=== PATIENT | female | born 1995 | race Caucasian/White ===

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

== ENCOUNTER 2017-04-20 08:20 | Emergency (ER) | payer OTHER ==
[2017-04-20 08:34] VITALS: BP 130/80
--- NOTE | 2017-04-20 09:03 | UC ---
Eye Complaint HPI - HPI Summary HPI Summary: 22 yo WF c/o B/L crusty yellow d/c worsening since yesterday and worsening sinus infection about 10 days after her URI sx - History of Current Complaint Chief Complaint: UCGeneralIllness Stated Complaint: EYE ISSUE SINUS ISSUE Time Seen by Provider: 04/20/17 08:48 Hx Obtained From: Patient Hx Last Menstrual Period: 03/25/17 Onset/Duration: Lasting Days, Still Present Timing: Constant Pain Intensity: 4 - Allergies/Home Medications Allergies/Adverse Reactions: Allergies Allergy/AdvReac Type Severity Reaction Status Date / Time No Known Allergies Allergy Verified 04/20/17 08:29 PMH/Surg Hx/FS Hx/Imm Hx - Additional Past Medical History Additional PMH: none Previously Healthy: Yes - Surgical History Surgical History: None - Family History Known Family History: Positive: Hypertension - Social History Alcohol Use: Occasionally Substance Use Type: None Smoking Status (MU): Never Smoked Tobacco Review of Systems Constitutional: Negative Skin: Negative Eyes: Drainage, Eye Redness ENT: Nasal Discharge, Sinus Pain/Tenderness Respiratory: Negative Cardiovascular: Negative Gastrointestinal: Negative Genitourinary: Negative Motor: Negative Neurovascular: Negative Musculoskeletal: Negative Neurological: Negative Psychological: Negative All Other Systems Reviewed And Are Negative: Yes Physical Exam Triage Information Reviewed: Yes Vital Signs: Initial Vital Signs Temp 37.2 C 04/20/17 08:30 Pulse 81 04/20/17 08:30 Resp 16 04/20/17 08:30 BP 130/80 04/20/17 08:30 Pulse Ox 99 04/20/17 08:30 Eyes: Positive: Other: - B/L conjunctivial injection with yellow d/c ENT Exam: Normal ENT: Positive: Sinus tenderness Dental Exam: Normal Neck exam: Normal Neck: Positive: 1 Respiratory Exam: Normal Cardiovascular Exam: Normal Abdominal Exam: Normal Musculoskeletal Exam: Normal Neurological Exam: Normal Psychological Exam: Normal Skin Exam: Normal Eye Complaint Course/Dx - Differential Dx/Diagnosis Provider Diagnoses: B/L conjucntivitis. Bacterial sinus infection Discharge - Discharge Plan Condition: Stable Disposition: HOME Prescriptions: Amoxicillin/Clavulanate TAB* [Augmentin TAB 500 mg*] 500 mg PO BID 7 Days #14 tab Ciprofloxacin 0.3% OPTH.ROSA* [Cipro 0.3% Opth*] 2 drop BOTH EYES Q4H 7 Days #1 btl Patient Education Materials: Conjunctivitis (ED), Rhinosinusitis (ED) Referrals: [facility] - H[facility]ctor CHARLES [Primary Care Provider] - Additional Instructions: take medications as directed
== END 2017-04-20 09:00 | disposition home or self-care (01) ==
LOC: UCEAST 08:20
DX: H10.9 Unspecified conjunctivitis (principal); J32.9 Chronic sinusitis, unspecified; B96.89 Other specified bacterial agents as the cause of diseases classified elsewhere
CPT/HCPCS: 99212; G0463

== ENCOUNTER 2017-06-04 19:25 | Emergency (ER) | payer OTHER ==
--- NOTE | 2017-06-04 19:38 | UC ---
Skin Complaint HPI - HPI Summary HPI Summary: Pt presents for mildly itchy rash on her upper back that she first noticed earlier today. 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 Denies fever or chills. - History of Current Complaint Time Seen by Provider: 06/04/17 19:38 Stated Complaint: RASH ON BACK Hx Obtained From: Patient Hx Last Menstrual Period: 03/25/17 Onset/Duration: Sudden Onset Timing: Constant - Allergy/Home Medications Allergies/Adverse Reactions: Allergies Allergy/AdvReac Type Severity Reaction Status Date / Time No Known Allergies Allergy Verified 06/04/17 19:53 Review of Systems Constitutional: Negative Skin: Rash - Back Respiratory: Negative Cardiovascular: Negative Neurovascular: Negative Neurological: Negative Psychological: Negative All Other Systems Reviewed And Are Negative: Yes PMH/Surg Hx/FS Hx/Imm Hx - Additional Past Medical History Additional PMH: None Previously Healthy: Yes - Surgical History Surgical History: None - Family History Known Family History: Positive: Hypertension - Social History Occupation: Student Lives: Dormitory/Roommates Alcohol Use: Occasionally Substance Use Type: None Smoking Status (MU): Never Smoked Tobacco Physical Exam - Summary Physical Exam Summary: GENERAL: NAD. WDWN. No pain distress. SKIN: On left upper back there is a 5.0cm diameter area of mild hyperpigmentation and mild boarding erythema. NECK: Supple. Nontender. No lymphadenopathy. CHEST: CTAB. No r/r/w. No accessory muscle use. Breathing comfortably and in no distress. CV: RRR. Without m/r/g. Pulses intact. Brisk cap refill. NEURO: Alert. CN II-XII grossly intact. PSYCH: Age appropriate behavior. Triage Information Reviewed: Yes Course/Dx - Course Course Of Treatment: Suspect tinea infection. Rx for ketoconazole - Diagnoses Provider Diagnoses: Tinea infection back Discharge - Sign-Out/Discharge Documenting (check all that apply): Discharge/Admit/Transfer - Discharge Plan Condition: Stable Disposition: HOME Prescriptions: Hydrocortisone 1% CREAM* [Hytone Cream 1%*] 1 applic TOPICAL BID #1 tube Ketoconazole 2 % CREAM (NF) [Nizoral 2% CREAM (NF)] 1 applic TOPICAL BID #1 tube Patient Education Materials: Tinea Versicolor (ED) Additional Instructions: If you develop a fever, shortness of breath, chest pain, new or worsening symptoms - please call your PCP or go to the ED. - Billing Disposition and Condition Condition: STABLE Disposition: HOME
[2017-06-04 19:53] VITALS: BP 136/72
== END 2017-06-04 20:03 | disposition home or self-care (01) ==
LOC: UCEAST 19:25
DX: B35.4 Tinea corporis (principal)
CPT/HCPCS: 99211; G0463

== ENCOUNTER 2017-11-15 14:03 | Emergency (ER) | payer OTHER ==
[2017-11-15 14:20] VITALS: BP 132/87
--- NOTE | 2017-11-15 15:45 | UC ---
Complaint Female HPI - HPI Summary HPI Summary: 22 yo female presents requesting STD testing. She tells me that she has been sexually active with a new partner and has found out that he has been "not the cleanest person". She does not believe he has any specific STD, but is requesting a screening. Denies fever, chills, abdominal pain, pelvic pain, dysuria, or vaginal discharge. - History Of Current Complaint Chief Complaint: UCSTDScreening Stated Complaint: STD TESTING Time Seen by Provider: 11/15/17 14:46 Hx Obtained From: Patient Hx Last Menstrual Period: 10/29/17 Severity Currently: None Pain Intensity: 0 - Allergies/Home Medications Allergies/Adverse Reactions: Allergies Allergy/AdvReac Type Severity Reaction Status Date / Time No Known Allergies Allergy Verified 06/04/17 19:53 Home Medications: Home Medications Tri-Estarylla (Nf) [Tri-Estarylla] 1 tab PO DAILY 11/15/17 [History Confirmed ] PMH/Surg Hx/FS Hx/Imm Hx - Additional Past Medical History Additional PMH: None - Surgical History Surgical History: None - Family History Known Family History: Positive: Hypertension - Social History Occupation: Student Lives: Dormitory/Roommates Alcohol Use: Occasionally Substance Use Type: None Smoking Status (MU): Never Smoked Tobacco Review of Systems Constitutional: Negative Skin: Negative Respiratory: Negative Cardiovascular: Negative Gastrointestinal: Negative Genitourinary: Negative Motor: Negative Neurological: Negative Psychological: Negative All Other Systems Reviewed And Are Negative: Yes Physical Exam - Summary Physical Exam Summary: GENERAL: NAD. WDWN. No pain distress. SKIN: No rashes, sores, lesions, or open wounds. NECK: Supple. Nontender. No lymphadenopathy. CHEST: CTAB. No r/r/w. No accessory muscle use. Breathing comfortably and in no distress. CV: RRR. Without m/r/g. Pulses intact. Cap refill <2seconds ABDOMEN: Soft. NTTP. No distention or guarding. No CVA tenderness. Bowel sounds present NEURO: Alert. PSYCH: Age appropriate behavior. Triage Information Reviewed: Yes Vital Signs: Initial Vital Signs Temp 98 F 11/15/17 14:17 Pulse 78 11/15/17 14:17 Resp 15 11/15/17 14:17 BP 132/87 11/15/17 14:17 Pulse Ox 100 11/15/17 14:17 Vital Signs Reviewed: Yes Pelvic Exam: Positive: External Exam Normal, No Cerv. Motion Tender, No Masses, Discharge - Mild thick white/yellow, Other - Assisted by Jesica EMANUEL. Negative: Active Bleeding, Lesions, Mass, Ulcers Complaint Female Dx - Course Course Of Treatment: Cultures obtained for Affirm and GC/C. Will call her with results. She declined blood testing today. - Differential Dx/Diagnosis Provider Diagnoses: STD testing Discharge - Sign-Out/Discharge Documenting (check all that apply): Patient Departure All imaging exams completed and their final reports reviewed: No Studies - Discharge Plan Condition: Stable Disposition: HOME Patient Education Materials: Chlamydia (ED), Sexually Transmitted Diseases (ED) Referrals: Bia Finch MD [Primary Care Provider] - Additional Instructions: If you develop a fever, shortness of breath, chest pain, new or worsening symptoms - please call your PCP or go to the ED. If you have not heard from us by Monday - please call and ask about your results - Billing Disposition and Condition Condition: STABLE Disposition: Home
--- NOTE | 2017-11-16 20:02 | UC ---
- Progress Note Progress Note: Neg GC, ch neg garnerela neg malik Please call pt with result ljj 11/16/17\ Discharge - Sign-Out/Discharge Documenting (check all that apply): Post-Discharge Follow Up All imaging exams completed and their final reports reviewed: No Studies - Discharge Plan Condition: Stable Disposition: HOME Patient Education Materials: Chlamydia (ED), Sexually Transmitted Diseases (ED) Referrals: Bia Finch MD [Primary Care Provider] - Additional Instructions: If you develop a fever, shortness of breath, chest pain, new or worsening symptoms - please call your PCP or go to the ED. If you have not heard from us by Monday - please call and ask about your results - Billing Disposition and Condition Condition: STABLE Disposition: Home
== END 2017-11-15 15:55 | disposition home or self-care (01) ==
LOC: UCEAST 14:03
DX: Z11.3 Encounter for screening for infections with a predominantly sexual mode of transmission (principal)
CPT/HCPCS: 84702; 87480; 87491; 87510; 87591; 87661; 99212; G0463

== ENCOUNTER 2018-04-16 16:04 | Emergency (ER) | payer OTHER ==
--- NOTE | 2018-04-16 16:24 | UC ---
Respiratory Complaint HPI - HPI Summary HPI Summary: 23 yo female presents with flu like symptoms. She tells me that her roommate at [employer] was sick with the flu last week. 2 days ago pt developed fatigue, body aches, loose stool, dry cough, and fever of 100.4F yesterday. Today she feels better as she has been taking theraflu. She denies sinus symptoms, sore throat, SOB, chest pain, abdominal pain. - History of Current Complaint Stated Complaint: COUGH, ACHES, DIARRHEA, AND FEVER Time Seen by Provider: 04/16/18 16:24 Hx Obtained From: Patient Hx Last Menstrual Period: 10/29/17 Onset/Duration: Sudden Onset Timing: Constant Severity Initially: Moderate Severity Currently: Mild Pain Intensity: 3 Pain Scale Used: 0-10 Numeric Character: Cough: Nonproductive - Allergies/Home Medications Allergies/Adverse Reactions: Allergies Allergy/AdvReac Type Severity Reaction Status Date / Time No Known Allergies Allergy Verified 06/04/17 19:53 Home Medications: Home Medications Pheniramine/P-Eph/Acetaminophn [Theraflu Flu & Sore Throat] 04/16/18 [History] PMH/Surg Hx/FS Hx/Imm Hx - Additional Past Medical History Additional PMH: None - Surgical History Surgical History: None - Family History Known Family History: Positive: Hypertension - Social History Occupation: Student Lives: Dormitory/Roommates Alcohol Use: Occasionally Substance Use Type: None Smoking Status (MU): Never Smoked Tobacco Review of Systems All Other Systems Reviewed And Are Negative: Yes Constitutional: Positive: Fever, Fatigue, Other - Body aches Skin: Positive: Negative Eyes: Positive: Negative ENT: Positive: Negative Respiratory: Positive: Cough Cardiovascular: Positive: Negative Gastrointestinal: Positive: Nausea Genitourinary: Positive: Negative Neurovascular: Positive: Negative Neurological: Positive: Negative Psychological: Positive: Negative Physical Exam - Summary Physical Exam Summary: GENERAL: NAD. WDWN. No pain distress. SKIN: No rashes, sores, lesions, or open wounds. HEENT: Head: AT/NC Eyes: EOM intact. Conjunctiva clear without inflammation or discharge. Ears: Hearing grossly normal. TMs intact, no bulging, erythema, or edema. Nose: Nasal mucosa pink and moist. NTTP maxillary and frontal sinus. Throat: Posterior oropharynx without exudates, erythema, or tonsillar enlargement. Uvula midline. NECK: Supple. Nontender. No lymphadenopathy. CHEST: CTAB. No r/r/w. No accessory muscle use. Breathing comfortably and in no distress. CV: RRR. Without m/r/g. Pulses intact. Cap refill <2seconds NEURO: Alert. PSYCH: Age appropriate behavior. Triage Information Reviewed: Yes Vital Signs: Vital Signs: Temp Pulse Resp BP Pulse Ox 98.5 F 84 16 135/96 100 04/16/18 16:19 04/16/18 16:19 04/16/18 16:19 04/16/18 16:19 04/16/18 16:19 Laboratory Tests 04/16/18 16:46 Influenza A (Rapid) Positive A Vital Signs Reviewed: Yes Respiratory Course/Dx - Course Course Of Treatment: POC flu positive. Discussed role of tamiflu and pt declines rx at this time. Wishes to continue taking OTC medication. She is asking for a note to be out of sports for tomorrow in order to rest, which I will provide for her. - Differential Dx/Diagnosis Provider Diagnosis: Influenza Discharge - Sign-Out/Discharge Documenting (check all that apply): Patient Departure All imaging exams completed and their final reports reviewed: No Studies - Discharge Plan Condition: Stable Disposition: HOME Patient Education Materials: Influenza (ED) Forms: *Physical Education Release Referrals: Bia Finch MD [Primary Care Provider] - Additional Instructions: If you develop a fever, shortness of breath, chest pain, new or worsening symptoms - please call your PCP or go to the ED. 1) Rest and drink plenty of fluids! - Billing Disposition and Condition Condition: STABLE Disposition: Home
[2018-04-16 16:25] VITALS: BP 135/96
[2018-04-16 16:50] LABS: Influenza A Molecular POSITIVE (Negative)
== END 2018-04-16 17:10 | disposition home or self-care (01) ==
LOC: UCEAST 16:04
DX: J11.1 Influenza due to unidentified influenza virus with other respiratory manifestations (principal)
CPT/HCPCS: 99211; G0463